=== PATIENT | female | born 1985 | race Caucasian/White ===

== ENCOUNTER 2025-01-31 11:29 | Emergency (ER) | payer OTHER, SELFPAY ==
[2025-01-31 11:32] VITALS: BP 129/78
[2025-01-31 11:48] VITALS: BMI 28.2
--- NOTE | 2025-01-31 13:09 | ED.GENMED ---
History of Present Illness
General
Chief Complaint: Dental Problem
Source: patient
Exam Limitations: none
Time Seen by Provider: 01/31/25 12:57
Nursing documentation reviewed up to this point in time: agreed with
History of Present Illness
History of Present Illness:
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
gumline and one area on upper left mid gumline for past 2 months. Has been on Amoxicillin x 10 days three times, once with Clindamycin added and is now on Amoxicillin.
She is from [place], is in the [employer] [facility] for drug and alcohol recovery. She has no dental insurance. She has been rinsing with prescribed mouth wash. States the areas will drain, sometimes she massages them and gets pus.
She denies fever/chills, n/v/d/c. Denies neck or ear pain
She knows her wisdom teeth are impacted and has been told they should come out. She also has poor dentition with multiple cavities.
Past History
Past History
ED Past Medical History: Psychiatric (alcohol and drug abuse)
ED Past Surgical History: Appendectomy and
Social History
Tobacco: Non-smoker
Personal: Single
Living: other ([employer] [facility], past two months lives in [place])
Employment: Not employed
Review of Systems
Review of Systems
Allergies reviewed?: Yes
All Other Systems: ROS reviewed and negative except as documented in HPI and ROS
Constitutional: Denies fever
EENT: Reports mouth pain; Denies sore throat
Respiratory: Denies trouble breathing
ABD/GI: Denies nausea or vomiting
Musculoskeletal: Denies neck pain
Skin: Reports no symptoms
Neurological: Denies headache
Phy Exam
Physical Exam
Physical Exam:
GENERAL: No acute distress. A&Ox3.
CONSTITUTIONAL: Afebrile.
EYES: clear, conjunctivae normal
ENMT: moist mucus membranes, Pharynx nl. Impacted wisdom teeth. Lower left buccal mucosal gum is minimally erythematous, mildly tender, no abscess, minimally swollen. Left upper buccal mucosal gum minimally swollen and erythematous, there is a
punctate opening where there may have been some pus drainage, no drainage currently. Teeth are in poor repair with multiple cavities full range of motion of jaw. No lymphadenopathy, neck is supple with full range of motion.
RESPIRATORY: Regular respirations, nonlabored, lungs clear.
CARDIOVASCULAR: Regular rate and rhythm, no murmurs, no rubs.
GI: Soft, nontender
MUSCULOSKELETAL: Moves with ease. Well perfused.
SKIN: Warm, dry, pink
PSYCH: Normal mood and affect. Well kept, interactive and appropriate
NEUROLOGIC: Awake, alert and oriented. No focal neurological deficits
Course
Vital Signs
Initial and Last Documented VS:
Initial Vital Signs
Temp Pulse Resp BP Pulse Ox
97.4 F 88 18 129/78 96
01/31/25 11:32 01/31/25 11:32 01/31/25 11:32 01/31/25 11:32 01/31/25 11:32
Last Documented Vital Signs
Temp Pulse Resp BP Pulse Ox
97.4 F 88 16 129/78 98
01/31/25 11:32 01/31/25 11:32 01/31/25 11:32 01/31/25 11:32 01/31/25 13:11
MDM/Problems Addressed
Differential Diagnosis Includes:
dental abscess, dental carries, impacted wisdom teeth
MDM/Problems Addressed:
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
gumline and one area on upper left mid gumline for past 2 months. Has been on Amoxicillin x 10 days three times, once with Clindamycin added and is now on Amoxicillin.
She is from [place], is in the [facility] Program for drug and alcohol recovery. She has no dental insurance. She has been rinsing with prescribed mouth wash. States the areas will drain, sometimes she massages them and gets pus.
She denies fever/chills, n/v/d/c. Denies neck or ear pain
She knows her wisdom teeth are impacted and has been told they should come out. She also has poor dentition with multiple cavities.
Patient here from [place] in a partial program for drug and alcohol recovery.
There is no abscess to drain, no fever, no acute distress
I provided patient with a list of area free dental clinics
She was appreciative of her encounter here.
*Pulse Oximetry
SaO2: 98
Oxygen Mode of Delivery: Room air
*Critical Care Note
Total Time (30-74mins, 75-104mins- exclusive of procedures): Not Applicable
ED Attending Note
-
Portions of this chart may have been created with voice recognition software.� Occasional wrong word or��sound alike� substitutions may have occurred due to the inherent limitations of voice recognition software.
Discharge Plan
Departure
Patient Disposition: Home (Routine Discharge)
Date of Disposition: 01/31/25
Time of Disposition: 13:29
Patient with high blood pressure during this ER visit?: No
Condition: Good
Discharge Problem:
Dental infection
Instructions: Tooth Decay, Adult (DC), Dental pain - ED discharge instructions
Referrals:
NONE,* [Family Provider, Internal Medicine]
Activity Restrictions/Additional Instructions:
As we discussed, you should have your wisdom teeth out and your cavities attended to.
I see and feel no drainable abscesses.
Continue your mouth wash, Ibuprofen/Tylenol for pain
Continue to massage the areas as long as they are draining, that is good.
Call the Clinics below and get next available appointment.
Reduced-Fee Dental Clinics
[facility]: [phone] call for appt. No walk ins
[facility]:
[facility]: [phone]
[facility] [phone]
[facility]: . No walk ins
[facility]: [phone]
[facility]: [phone]
[facility]: 1-
[facility]: [phone]
[facility]: [phone]
[facility], Free for uninsured
[facility]: [phone]
[facility] [phone] [place] [address]
[facility]:
[facility]:
Interventions
Interventions:
*Risk Screen - Suicide Last Done: 01/31/25 11:48
*General Assessment Last Done: 01/31/25 11:48
*Neglect/Abuse Screening Last Done: 01/31/25 11:48
*ED- Fall Risk Assessment Last Done: 01/31/25 11:48
*ED COVID-19 Vaccine History Last Done: 01/31/25 11:48
*Nursing Disposition Last Done: 01/31/25 13:46
Discharge Date and Time
Discharge Date/Time: 01/31/25 13:47
Print Language: JORDANIAN
== END 2025-01-31 13:47 | disposition home or self-care (01) ==
LOC: EMR 11:29
PROVIDERS: EMERGENCY PHYSICIAN Emergency Medicine
DX: K04.7 Periapical abscess without sinus (principal); Z59.71 Insufficient health insurance coverage; Z86.79 Personal history of other diseases of the circulatory system; Z87.440 Personal history of urinary (tract) infections; Z90.49 Acquired absence of other specified parts of digestive tract
CPT/HCPCS: 99282